=== PATIENT | female | born 1990 | race Caucasian/White ===

== ENCOUNTER 2017-01-31 11:41 | Emergency (ER) | payer OTHER ==
[2017-01-31 11:54] VITALS: TEMP 98.6; BMI 29.2
--- NOTE | 2017-01-31 12:16 | PDOC ---
History of Present Illness - General Chief Complaint: Bleeding from Anus Stated Complaint: SORE THROAT, BACK PAIN, RECTAL BLEEDING Time Seen by Provider: 01/31/17 12:15 Past History - Past Medical History Allergies/Adverse Reactions: Allergies Allergy/AdvReac Type Severity Reaction Status Date / Time No Known Allergies Allergy Verified 01/31/17 11:51 Home Medications: Ambulatory Orders NK [No Known Home Medication] 07/24/16 - Psycho/Social/Smoking Cessation Hx Anxiety: No Suicidal Ideation: No Smoking Status: No Smoking History: Never smoked Have you smoked in the past 12 months: No Number of Cigarettes Smoked Daily: 0 Information on smoking cessation initiated: No Hx Alcohol Use: No Drug/Substance Use Hx: No Substance Use Type: Alcohol *Physical Exam - Vital Signs Last Vital Signs Temp Pulse Resp BP Pulse Ox 98.6 F 96 H 18 117/66 100 01/31/17 11:51 01/31/17 11:51 01/31/17 11:51 01/31/17 11:51 01/31/17 11:51
--- NOTE | 2017-01-31 12:53 | PDOC ---
*Physical Exam - Vital Signs Last Vital Signs Temp Pulse Resp BP Pulse Ox 98.6 F 96 H 18 117/66 100 01/31/17 11:51 01/31/17 11:51 01/31/17 11:51 01/31/17 11:51 01/31/17 11:51 - Physical Exam Comments: 01/31/17 12:53 MIDLEVEL NOTE Pt seen by Midlevel Provider under my direct supervision. Pt interviewed and examined. Ancillary studies reviewed. I agree with plan as outlined by Midlevel Provider. Laboratory Tests 01/31/17 01/31/17 01/31/17 13:11 13:11 13:11 WBC 8.1 D RBC 5.50 H D Hgb 12.4 Hct 37.8 MCV 68.8 L MCHC 32.9 RDW 17.5 H D Plt Count 320 D MPV 8.9 Neutrophils % 76.1 Lymphocytes % 17.1 D Monocytes % 6.0 Eosinophils % 0.5 Basophils % 0.3 Hypochromic-Microcytic 2+ Anisocytosis 2+ Microcytosis 1+ Sodium 138 Potassium 4.5 Chloride 102 Carbon Dioxide 25 Anion Gap 11 BUN 9 Creatinine 0.6 Creat Clearance w eGFR > 60 Random Glucose 88 Calcium 9.1 Total Bilirubin 0.5 AST 17 D ALT 19 D Alkaline Phosphatase 48 Total Protein 7.5 Albumin 4.3 Urine Color Ltyellow Urine Appearance Slcloudy Urine pH 5.0 Ur Specific Baxter 1.014 Urine Protein Negative Urine Glucose (UA) Negative Urine Ketones Trace H Urine Blood Negative Urine Nitrite Negative Urine Bilirubin Negative Urine Urobilinogen Negative Ur Leukocyte Esterase 1+ H Urine RBC 1 Urine WBC 2 Ur Epithelial Cells Moderate Urine Bacteria Many Urine Mucus Rare Urine HCG, Qual Negative Stool Occult Blood Negative c/o ST, report of blood in stool, heme negative on exam here ED Treatment Course - LABORATORY CBC & Chemistry Diagram: 01/31/17 13:11 01/31/17 13:11 *DC/Admit/Observation/Transfer Diagnosis at time of Disposition: Sore throat, Blood in stool Back pain Qualifiers: Back pain location: low back pain Chronicity: acute Back pain laterality: bilateral Sciatica presence: without sciatica Qualified Code(s): M54.5 - Low back pain - Discharge Dispostion Disposition: HOME Condition at time of disposition: Good - Referrals Referrals: STAFF,NOT ON [Primary Care Provider] - Jt Bo MD [Staff Physician] - - Patient Instructions Printed Discharge Instructions: Sore Throat, Fecal Occult Blood Test, DI for Low Back Pain Additional Instructions: I recommend you follow up with the cable assembler enclosed . In Regards to sore throat eat soft nonabrasive foods. For back pain, you may take Motrin or Tylenol. If your symptoms worsen please return to the ER. Otherwise follow-up with your physician.
--- NOTE | 2017-01-31 13:25 | PDOC ---
History of Present Illness - General Chief Complaint: Bleeding from Anus Stated Complaint: SORE THROAT, BACK PAIN, RECTAL BLEEDING Time Seen by Provider: 01/31/17 12:15 History Source: Patient Exam Limitations: No Limitations - History of Present Illness Initial Comments: 01/31/17 13:21 26-year-old female presents to the ED with complaints of intermittent low back pain since yesterday without dysuria, recent change in activity, previous history of low back pain, or radiation of pain. Patient also states mild sore throat since this morning without difficulty swallowing and had noted bright red blood in the toilet upon defecation. Patient states has no history of hemorrhoids and although the stool was brown and there was blood also noted in the toilet bowl. Patient states no recent rectal penetration, abdominal pain, nausea, constipation, or abdominal distention. Timing/Duration: changing over time Severity: mild Past History - Past Medical History Allergies/Adverse Reactions: Allergies Allergy/AdvReac Type Severity Reaction Status Date / Time No Known Allergies Allergy Verified 01/31/17 11:51 Home Medications: Ambulatory Orders NK [No Known Home Medication] 07/24/16 - Reproductive History LMP Normal: Yes Is Patient Now?: No - Psycho/Social/Smoking Cessation Hx Anxiety: No Suicidal Ideation: No Smoking Status: No Smoking History: Never smoked Have you smoked in the past 12 months: No Number of Cigarettes Smoked Daily: 0 Information on smoking cessation initiated: No Hx Alcohol Use: No Drug/Substance Use Hx: No Substance Use Type: Alcohol Patient Lives Alone: No Lives with/in: parents Review of Systems - Review of Systems Able to Perform ROS?: Yes Constitutional: No: Symptoms Reported HEENTM: Yes: Throat Pain Respiratory: No: Symptoms reported Cardiac (ROS): No: Symptoms Reported ABD/GI: Yes: Symptoms Reported, Blood Streaked Bowels. No: Constipated, Diarrhea, Rectal Bleeding : No: Flank Pain Musculoskeletal: Yes: Back Pain (low back) Integumentary: No: Symptoms Reported Neurological: No: Symptoms reported Endocrine: No: Symptoms Reported *Physical Exam - Vital Signs Last Vital Signs Temp Pulse Resp BP Pulse Ox 98.6 F 96 H 18 117/66 100 01/31/17 11:51 01/31/17 11:51 01/31/17 11:51 01/31/17 11:51 01/31/17 11:51 - Physical Exam General Appearance: Yes: Nourished, Appropriately Dressed. No: Apparent Distress HEENT: positive: Pharynx Normal. negative: Pale Conjunctivae, Tonsillar Exudate , Tonsillar Erythema Neck: positive: Normal Thyroid, Supple. negative: Lymphadenopathy (R), Lymphadenopathy (L) Respiratory/Chest: positive: Lungs Clear, Normal Breath Sounds. negative: Respiratory Distress, Accessory Muscle Use Cardiovascular: positive: Regular Rhythm, Regular Rate. negative: Murmur Rectal Exam: positive: heme negative stool (brown stool on exam. specimen sent for testing), normal rectal tone. negative: hemorrhoids Musculoskeletal: negative: CVA Tenderness, Decreased Range of Motion, Muscle Spasm, Vertebral Tenderness Extremity: positive: Normal Capillary Refill Integumentary: positive: Normal Color, Warm, Moist Neurologic: positive: Motor Strength 5/5 (ambulatory) ED Treatment Course - LABORATORY CBC & Chemistry Diagram: 01/31/17 13:11 01/31/17 13:11 Medical Decision Making - Medical Decision Making 01/31/17 13:24 Patient complains of sore throat since yesterday, low back pain for the past 2 days, and blood-tinged stool 3 days ago upon defecation and then again this morning. Patient on exam had no acute findings including hemorrhoids. Patient ordered for labs, urine culture and stool for guaiac testing., 01/31/17 15:28 Laboratory Tests 01/31/17 01/31/17 01/31/17 13:11 13:11 13:11 WBC 8.1 D Hgb 12.4 Hct 37.8 Plt Count 320 D Neutrophils % 76.1 Sodium 138 Potassium 4.5 Chloride 102 Carbon Dioxide 25 BUN 9 Creatinine 0.6 Random Glucose 88 Calcium 9.1 Total Bilirubin 0.5 AST 17 D ALT 19 D Alkaline Phosphatase 48 Total Protein 7.5 Albumin 4.3 Urine Ketones Trace H Urine Nitrite Negative Ur Leukocyte Esterase 1+ H Urine RBC 1 Urine WBC 2 Urine HCG, Qual Negative Stool Occult Blood Negative Patient will be discharged home to follow-up with her PCP and given a referral to electric motorman *DC/Admit/Observation/Transfer Diagnosis at time of Disposition: Sore throat, Blood in stool Back pain Qualifiers: Back pain location: low back pain Chronicity: acute Back pain laterality: bilateral Sciatica presence: without sciatica Qualified Code(s): M54.5 - Low back pain - Discharge Dispostion Disposition: HOME Condition at time of disposition: Good - Referrals Referrals: STAFF,NOT ON [Primary Care Provider] - Jt Bo MD [Staff Physician] - - Patient Instructions Printed Discharge Instructions: Sore Throat, DI for Low Back Pain, Fecal Occult Blood Test Additional Instructions: I recommend you follow up with the electric motorman enclosed . In Regards to sore throat eat soft nonabrasive foods. For back pain, you may take Motrin or Tylenol. If your symptoms worsen please return to the ER. Otherwise follow-up with your physician.
[2017-01-31 14:09] LABS: BASOPHIL 0.3 % (0-2.0); EOSINOPHIL 0.5 % (0-4.5); MCH 22.6 pg (25.7-33.7); MCHC 32.9 g/dl (32.0-36.0); MEAN CELL VOLUME 68.8 fl (80-96); MEAN PLT VOLUME 8.9 fl (7.5-11.1); NEUTROPHILS 76.1 % (42.8-82.8); PLATELET COUNT 320 K/MM3 (134-434); RDW 17.5 % (11.6-15.6); WHITE BLOOD COUNT 8.1 K/mm3 (4.0-10.0)
[2017-01-31 14:11] LABS: STOOL FOR OCCULT BLOOD NEGATIVE (NEGATIVE)
[2017-01-31 14:26] LABS: URINE APPEARANCE SLCLOUDY; URINE BILIRUBIN NEGATIVE (NEGATIVE); URINE BLOOD NEGATIVE (NEGATIVE); URINE COLOR LTYELLOW; URINE GLUCOSE (UA) NEGATIVE (NEGATIVE); URINE KETONE TRACE (NEGATIVE); URINE NITRITE NEGATIVE (NEGATIVE); URINE PROTEIN NEGATIVE (NEGATIVE); URINE UROBILINOGEN NEGATIVE E.U./dl (0.2-1.0)
[2017-01-31 14:32] LABS: URINE LEUK ESTERASE 1+ (NEGATIVE)
[2017-01-31 14:45] LABS: URINE BACTERIA MANY /hpf (NONE SEEN); URINE MUCUS RARE; URINE RBC 1 /hpf (0-3); URINE WBC 2 /hpf (3-5)
[2017-01-31 15:13] LABS: ALBUMIN 4.3 g/dl (3.4-5.0); ANION GAP 11 (8-16); CALCIUM 9.1 mg/dL (8.5-10.1); CO2 25 mmol/L (21-32); CREATININE 0.6 mg/dL (0.55-1.02); GLUCOSE,RANDOM 88 mg/dL (74-106); SGOT/AST 17 U/L (15-37); SGPT/ALT 19 U/L (12-78)
[2017-01-31 15:15] LABS: ALK PHOS 48 U/L (45-117); BILIRUBIN,TOTAL 0.5 mg/dL (0.2-1.0); TOT PROT 7.5 g/dl (6.4-8.2)
[2017-01-31 15:21] LABS: ANISOCYTOSIS 2+; HYPOCHROMIA 2+; MICROCYTOSIS 1+
[2017-01-31 16:23] VITALS: BP 120/68; PULSE 80
== END 2017-01-31 16:21 | disposition home or self-care (01) ==
LOC: JER 11:41
DX: K92.1 Melena (principal)
CPT/HCPCS: 36415; 80053; 81003; 81015; 82272; 84703; 85025; 99285-25

== ENCOUNTER 2018-07-25 15:55 | Emergency (ER) | payer OTHER ==
[2018-07-25 15:59] VITALS: BP 131/78; PULSE 84; TEMP 98; BMI 32.2
--- NOTE | 2018-07-25 16:02 | PDOC ---
Rapid Medical Evaluation Chief Complaint: Eye Problem Time Seen by Provider: 07/25/18 15:57 Medical Evaluation: Allergies Allergy/AdvReac Type Severity Reaction Status Date / Time No Known Allergies Allergy Verified 01/31/17 11:51 07/25/18 15:57 I have performed a brief in person evaluation of this patient. The patient presents with chief complaint of : bleach going into left eye while cleaning. left eye irritation. no blurry vision or change in vision Pertinent PE findings: mildly injected left conjunctiva. normal vision. I have ordered the following: nothing The patient will proceed to the ER for further evaluation Discharge Disposition - Diagnosis Chemical injury of conjunctiva Qualifiers: Encounter type: initial encounter Laterality: left Qualified Code(s): T26.62XA - Corrosion of cornea and conjunctival sac, left eye, initial encounter - Referrals - Patient Instructions - Post Discharge Activity
[2018-07-25] MEDS ORDERED: ERYTHROMYCIN 0.5% OPHTHALMIC OINTMENT 3.5 GM TUBE OS ONE (16:24)
[2018-07-25] MEDS ORDERED: TETRACAINE 0.5% HCL 0.6ML DROPPER.BOTTLE OD ONE (16:24)
[2018-07-25] MEDS ORDERED: ERYTHROMYCIN 0.5% OPHTHALMIC OINTMENT 3.5 GM TUBE ONE (16:28)
--- NOTE | 2018-07-25 16:38 | PDOC ---
History of Present Illness - General Chief Complaint: Eye Problem Stated Complaint: EYE PROBLEM Time Seen by Provider: 07/25/18 15:57 History Source: Patient Exam Limitations: No Limitations - History of Present Illness Initial Comments: 07/25/18 16:33 27 yr female was cleaning at home and some clorox bleach splashed up into her eye. Pt immediately flushed the eye for 20 mins. pt has no vision changes. Pt does not use contact lenses. Timing/Duration: 1 hour Severity: mild Past History - Past Medical History Allergies/Adverse Reactions: Allergies Allergy/AdvReac Type Severity Reaction Status Date / Time No Known Allergies Allergy Verified 07/25/18 15:59 Home Medications: Ambulatory Orders Erythromycin 0.5% Eye Ointment [Erythromycin 0.5% Eye Ointment -] 1 applic OS QID #1 tube 07/25/18 CVA: No COPD: No DVT: No Other medical history: denies - Suicide/Smoking/Psychosocial Hx Smoking Status: No Smoking History: Never smoked Have you smoked in the past 12 months: No Number of Cigarettes Smoked Daily: 0 Information on smoking cessation initiated: Yes Hx Alcohol Use: No Drug/Substance Use Hx: No Substance Use Type: Alcohol Review of Systems - Review of Systems Able to Perform ROS?: Yes Is the patient limited Bolivian proficient: No Constitutional: No: Symptoms Reported HEENTM: Yes: Symptoms Reported *Physical Exam - Vital Signs Last Vital Signs Temp Pulse Resp BP Pulse Ox 98 F 84 18 131/78 100 07/25/18 15:57 07/25/18 15:57 07/25/18 15:57 07/25/18 15:57 07/25/18 15:57 - Physical Exam General Appearance: Yes: Nourished, Appropriately Dressed HEENT: positive: EOMI, ALESIA, Other (left eye conjunctival mildly injected, EOMI no pain no discharge ) Procedures - Eye Procedure Alcaine Drops Administered: Yes (2 drops) Eye Irrigated w/ Saline(Dragan Lens): Yes Antibiotic Oinment/Drps Admin: left eye (erythromycin) Progress: 07/25/18 16:34 tolerated irrigation well Medical Decision Making - Medical Decision Making 07/25/18 16:34 cc: left eye irritated after splashing bleach into the eye 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, states she feels better, limited burning but continued pain will place tetracaine drops erythromycin ointment strict follow up with opthomology *DC/Admit/Observation/Transfer Diagnosis at time of Disposition: Chemical injury of conjunctiva Qualifiers: Encounter type: initial encounter Laterality: left Qualified Code(s): T26.62XA - Corrosion of cornea and conjunctival sac, left eye, initial encounter - Discharge Dispostion Disposition: HOME Condition at time of disposition: Good - Prescriptions Prescriptions: Erythromycin 0.5% Eye Ointment [Erythromycin 0.5% Eye Ointment -] 1 applic OS QID #1 tube - Referrals Referrals: Apurva Kunz MD [Primary Care Provider] - Tri Nagy MD [Staff Physician] - - Patient Instructions Printed Discharge Instructions: DI for Chemical Eye Burn Additional Instructions: continue to flush eye with warm water for 10-15 minutes every few hours today apply the erythromycin ointment to lower lid four times a day for 3-5 days take motrin as needed for pain avoid straining your eyes reading small print follow with the eye doctor if any worsening symptoms - Post Discharge Activity
== END 2018-07-25 16:49 | disposition home or self-care (01) ==
LOC: JERFT 15:55
DX: T26.62XA Corrosion of cornea and conjunctival sac, left eye, initial encounter (principal); X58.XXXA Exposure to other specified factors, initial encounter; Y93.89 Activity, other specified; Y92.9 Unspecified place or not applicable
CPT/HCPCS: 99281-25

== ENCOUNTER 2018-08-23 09:19 | Emergency (ER) | payer OTHER ==
[2018-08-23 10:05] VITALS: BP 107/69; PULSE 75; TEMP 98.6; BMI 32.2
--- NOTE | 2018-08-23 10:43 | PDOC ---
History of Present Illness - General Chief Complaint: Injury Stated Complaint: INJURY Time Seen by Provider: 08/23/18 10:19 History Source: Patient Exam Limitations: No Limitations - History of Present Illness Initial Comments: 08/23/18 10:28 28 yr female with c/o left ankle twisted today at work stepping on acorns. pt has pain to the ankle. Past History - Past Medical History Allergies/Adverse Reactions: Allergies Allergy/AdvReac Type Severity Reaction Status Date / Time No Known Allergies Allergy Verified 08/23/18 10:02 Home Medications: Ambulatory Orders NK [No Known Home Medication] 08/23/18 CVA: No COPD: No DVT: No - Immunization History Immunization Up to Date: Yes - Suicide/Smoking/Psychosocial Hx Smoking Status: No Smoking History: Never smoked Have you smoked in the past 12 months: No Number of Cigarettes Smoked Daily: 0 Hx Alcohol Use: No Drug/Substance Use Hx: No Substance Use Type: Alcohol *Physical Exam - Vital Signs Last Vital Signs Temp Pulse Resp BP Pulse Ox 98.6 F 75 18 107/69 99 08/23/18 10:02 08/23/18 10:02 08/23/18 10:02 08/23/18 10:02 08/23/18 10:02 - Physical Exam General Appearance: Yes: Nourished, Appropriately Dressed HEENT: positive: EOMI, ALESIA Musculoskeletal: positive: Normal Inspection Extremity: positive: Normal Capillary Refill, Normal Inspection, Normal Range of Motion, Tender (soft tissue lateral ttp nop bony tenderness, FROM of the joint no swelling). negative: Swelling, Erythema, Inflammation Integumentary: positive: Normal Color, Dry, Warm Neurologic: positive: Fully Oriented, Alert, Normal Mood/Affect, Normal Response , Motor Strength 5/5 Medical Decision Making - Medical Decision Making 08/23/18 10:43 cc: ankle sprain no bony deformity or tenderness will place fuad wrap pt ambulating no distress 08/23/18 10:47 *DC/Admit/Observation/Transfer Diagnosis at time of Disposition: Ankle sprain Qualifiers: Encounter type: initial encounter Involved ligament of ankle: other ligament Laterality: left Qualified Code(s): S93.492A - Sprain of other ligament of left ankle, initial encounter - Discharge Dispostion Disposition: HOME Condition at time of disposition: Good - Referrals Referrals: Apurva Kunz MD [Primary Care Provider] - Alvino Barr MD [Staff Physician] - - Patient Instructions Additional Instructions: follow with if symptoms worsen or persist elevate and apply ice every 2hrs for 20 minutes take over the counter ibuprofen or motrin for pain use the fuad wrap while awake , remove to sleep and bathe - Post Discharge Activity Forms/Work/School Notes: Back to Work
== END 2018-08-23 10:47 | disposition home or self-care (01) ==
LOC: JERFT 09:19
DX: S93.492A Sprain of other ligament of left ankle, initial encounter (principal); W22.8XXA Striking against or struck by other objects, initial encounter; Y93.89 Activity, other specified; Y92.89 Other specified places as the place of occurrence of the external cause; Y99.0 Civilian activity done for income or pay
CPT/HCPCS: 99281-25

== ENCOUNTER 2019-03-08 12:23 | Emergency (ER) | payer SELFPAY ==
[2019-03-08 12:27] VITALS: BP 125/74; PULSE 104; TEMP 98.4; BMI 32.8
[2019-03-08] MEDS ORDERED: KETOROLAC TROMETHAMINE 30 MG/1 ML VIAL IM ONE (13:38)
--- NOTE | 2019-03-08 13:46 | PDOC ---
History of Present Illness - General Chief Complaint: Back Pain Stated Complaint: LOWER BACK PAIN Time Seen by Provider: 03/08/19 13:24 History Source: Patient Exam Limitations: No Limitations - History of Present Illness Initial Comments: 03/08/19 13:40 CHIEF COMPLAINT: Lower back pain HISTORY OF PRESENT ILLNESS: 28-year-old woman denies medical history of presents emergency department for evaluation of lower back and sacral pain status post fall. 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 Patient immediately got up and was ambulatory but within approximately one hour began to feel severe pain in her sacrum. She denies any radiation of the pain, neurosensory deficits, incontinence of bladder or bowel, urinary retention, saddle anesthesia, foot drop, history of IV drug use or cancer. REVIEW OF SYSTEMS: GENERAL: Afebrile, denies any weakness RESPIRATORY: No cough, wheezing, or hemoptysis. CARDIAC: No chest pain or shortness of breath MUSCULOSKELETAL: Pain to generalized lower back. No point tenderness. SKIN : No erythema, no bruising, no deformity. GI/: Denies any abdominal pain, no urinary difficulty, incontinence or urinary retention. RECTAL: Denies any difficulty this A.m. NEUROLOGICAL: Denies any numbness or tingling. No neurosensory deficits. PHYSICAL EXAM: GENERAL: The patient is awake, alert, and fully oriented, in no acute distress. RESPIRATORY: Lungs clear bilaterally, no rhonchi wheezes or crackles CARDIAC: S1-S2 audible, no murmur rub or gallop MUSCULOSKELETAL: Pain to generalized lower back, nonradiating, no tingling or sensory deficit. Less than 2 second cap refill, +2 pedal pulses. No spinal point tenderness. Normal reflexive and no deficits to sensation or strength. Sacra tenderness. GI/: Abdomen soft, nontender, nondistended. No rebound tenderness. No masses palpable. RECTAL: Deferred patient with no neurological findings SKIN: Warm, Dry, normal turgor, no erythema, no edema no bruising. Past History - Past Medical History Allergies/Adverse Reactions: Allergies Allergy/AdvReac Type Severity Reaction Status Date / Time No Known Allergies Allergy Verified 03/08/19 12:24 Home Medications: Ambulatory Orders NK [No Known Home Medication] 08/23/18 CVA: No COPD: No DVT: No - Immunization History Immunization Up to Date: Yes - Suicide/Smoking/Psychosocial Hx Smoking Status: No Smoking History: Never smoked Have you smoked in the past 12 months: No Number of Cigarettes Smoked Daily: 0 Hx Alcohol Use: No Drug/Substance Use Hx: No Substance Use Type: Alcohol *Physical Exam - Vital Signs Last Vital Signs Temp Pulse Resp BP Pulse Ox 98.4 F 104 H 18 125/74 100 03/08/19 12:24 03/08/19 12:24 03/08/19 12:24 03/08/19 12:24 03/08/19 12:24 ED Treatment Course - RADIOLOGY Radiology Studies Ordered: Category Date Time Status SACRUM [RAD] Stat Radiology 03/08/19 13:38 Ordered Medical Decision Making - Medical Decision Making 03/08/19 13:46 A/P: 28-year-old woman with sacral pain status post fall The patient is low risk for a fracture she is a premenopausal woman and is ambulatory without any gait disturbances. As this is a work-related incident she does have sacral tenderness I will rule out a sacral fracture Urine Sacral x-ray Toradol 30 mg IM Reassess 03/08/19 15:03 X-rays of the sacrum as read by me: No acute fractures present. I will discharge the patient home with instructions to take NSAID medication for pain relief as well as supportive treatment. I discussed the physical exam findings, ancillary test results and final diagnoses with the patient. I answered all of the patient's questions. The patient was satisfied with the care received and felt comfortable with the discharge plan and treatment plan. The patient will call their primary care physician within 24 hours to arrange follow-up and will return to the Emergency Department with any new, persistent or worsening symptoms. *DC/Admit/Observation/Transfer Diagnosis at time of Disposition: Sacral pain - Discharge Dispostion Disposition: HOME Condition at time of disposition: Stable Decision to Admit order: No - Referrals - Patient Instructions Additional Instructions: Rest. Take Tylenol or Motrin as needed for pain. Follow manufacturers instructions for appropriate dosage. Warm moist heat applied to your back may help alleviate pain. Return to emergency department for discoloration of the foot, numbness or tingling to the foot, worsening pain, or any other concerns. Thank you very much for choosing us to provide your emergent healthcare needs. - Post Discharge Activity
[2019-03-08] MEDS ORDERED: KETOROLAC TROMETHAMINE 30 MG/1 ML VIAL ONE (14:39)
== END 2019-03-08 15:11 | disposition home or self-care (01) ==
LOC: JERFT 12:23
PROC: 3E0233Z Introduction of Anti-inflammatory into Muscle, Percutaneous Approach (ICD-10-PCS; principal; 2019-03-08)
DX: S39.82XA Other specified injuries of lower back, initial encounter (principal); W01.0XXA Fall on same level from slipping, tripping and stumbling without subsequent striking against object, initial encounter; Y93.89 Activity, other specified; Y92.89 Other specified places as the place of occurrence of the external cause; Y99.0 Civilian activity done for income or pay
CPT/HCPCS: 72220-TC-FY; 84703; 99281-25

== ENCOUNTER 2022-03-01 13:47 | Emergency (ER) | payer OTHER ==
[2022-03-01 13:58] VITALS: PULSE 88; TEMP 98.2; BMI 32.2
[2022-03-01 17:10] VITALS: BP 115/75
[2022-03-01] MEDS ORDERED: MECLIZINE HCL 25 MG TABLET (FP) PO ONE (17:31)
[2022-03-01] MEDS ORDERED: MECLIZINE HCL 25 MG TABLET (FP) ONE (17:33)
== END 2022-03-01 17:40 | disposition home or self-care (01) ==
LOC: JER 13:47
DX: R42 Dizziness and giddiness (principal)
CPT/HCPCS: 82962; 84703; 93005; 93010; 99284-25